=== PATIENT | female | born 1995 | race Hispanic/Latino ===

== ENCOUNTER 2016-10-14 19:46 | Emergency (ER) | payer MEDICAID, OTHER ==
[~2016-10-14] VITALS: Ht 162.6 cm; Wt 59.1 kg
[2016-10-14 19:58] VITALS: BP 114/76; PULSE 67; RESP 16; O2SAT 99
[2016-10-14 20:49] LABS: BASOPHILS % (AUTO) 0.4 % (0-3); EOSINOPHILS % (AUTO) 1.1 % (0-5); MONOCYTES % (AUTO) 7.2 % (4-12); Mean Corpuscular Hemoglobin 31.5 pg (27.0-35.0); Mean Corpuscular Volume 91.8 fL (81-100); NEUTROPHILS % (AUTO) 67.8 % (40-74); Platelet Count 186 bil/L (150-400)
[2016-10-14] MEDS ORDERED: Ondansetron 2 mg/mL 2 mL Inj ONE (21:33)
[2016-10-14] MEDS: Ondansetron 2 mg/mL 2 mL Inj IVPUSH ONE ×2 (21:50→22:22)
[2016-10-14] MEDS ORDERED: 0.9% Sodium Chloride 1,000 ML IV ONE (21:50)
--- NOTE | 2016-10-14 21:51 | ED.REPORT ---
HPI-NVD Date of Service Oct 14, 2016 ED Provider: Jevon Carrera MD Pt is an otherwise healthy 21 year old female who presents to the ED complaining of shaking for the past two days. She c/o associated nausea (onset at 12:00 today), vomiting (onset at 12:00 today, 5x), dizziness, and weakness. The pt denies diaphoresis, rashes, fever, chills, diarrhea, thirst, and leg swelling. She reports that she has not traveled recently and has not been around anyone with similar symptoms recently. Nursing Notes Stated Complaint: PT WORRIED ABOUT BP/NAUSEA/VOMITING Chief Complaint: General Complaint Nursing Notes Reviewed: Yes (Convercent, Já Entendi not reconciled) Allergies: Coded Allergies: No Known Allergies (Unverified Allergy, Unknown, 10/14/16) Scheduled PRN Ondansetron ODT (Ondansetron ODT) 8 Mg Tab.rapdis 8 MG PO Q4H PRN PRN For Nausea General Time Seen by MD: 21:41 Chief Complaint Vomiting Hx Obtained From: Patient Arrived By: Walk-in Onset Occurred: 2 days ago Symptom Duration: Since onset Severity: Current: No pain currently Severity: Maximum: No pain Recent Healthcare: No recent doctor visit, No recent hospitalization Similar Sx Previous: No Past Medical History Past Medical History denies Past Surgical History denies Smoking History Never Smoker Social History Alcohol Use: Denies alcohol use Drug Use: Denies drug use Other Social History: Good social support, Local resident Ambulatory Status Independent Review of Systems Constitutional: Reports: Weakness - generalized, Denies: Chills, Fever GI: Reports: Nausea, Vomiting, Denies: Diarrhea Skin: Denies Rash, Denies Swelling Neurologic: Reports: Dizziness, Shaking Complete sys rev & neg: except as marked. Physical Exam Initial Vital Signs Vital Signs (First) Date Time Temp Pulse Resp B/P Pulse Ox O2 Delivery O2 Flow Rate FiO2 10/14/16 19:58 37.1 67 16 114/76 99 Room Air Initial VS: Reviewed, Vital signs normal Neck: Supple, Non-tender, Full range of motion Respiratory: Breath sounds normal, Clear to auscultation, No respiratory distress Cardiovascular: Regular rate & rhythm, Heart sounds normal, Intact distal pulses Extremities: Vascular intact, Neuro intact Skin: Warm, Dry, No cyanosis Neurologic: Alert, Oriented, Nonfocal Psychiatric: Mood/affect normal, Behavior normal General/Constitutional: Awake, Alert, Cooperative, Not toxic appearing Appears fatigued Abdomen: Atraumatic, Soft, Non-tender ENT: Atraumatic, Airway patent, Pharynx NL Mouth: Positive: Mucous membranes dry Interpretation & Diagnostics Lab Results Interpretation Result Diagram: 10/14/16203910/14/162039 Test 10/14/16 20:40 10/14/16 21:09 White Blood Count 5.7th/mm3 (3.8-10.1) Red Blood Count 4.03mil/mm3 (3.90-5.20) Hemoglobin 12.7g/dL (12.0-15.6) Hematocrit 37.0% (35.0-46.0) Mean Corpuscular Volume 91.8fL (81-100) Mean Corpuscular Hemoglobin 31.5pg (27.0-35.0) Mean Corpuscular Hemoglobin Concent 34.3% (32.0-37.0) Red Cell Distribution Width 12.2% (12.3-15.4) Platelet Count 186bil/L (150-400) Neutrophils (%) (Auto) 67.8% (40-74) Lymphocytes (%) (Auto) 23.3% (14-46) Monocytes (%) (Auto) 7.2% (4-12) Eosinophils (%) (Auto) 1.1% (0-5) Basophils (%) (Auto) 0.4% (0-3) Sodium Level 138mEq/L (134-144) Potassium Level 3.5mEq/L (3.5-5.2) Chloride Level 104mEq/L (97-108) Carbon Dioxide Level 20mmol/L (18-29) Blood Urea Nitrogen 16mg/dL (6-20) Creatinine 0.59mg/dL (0.57-1.00) Estimat Glomerular Filtration Rate 186mL/min (>59) Glucose Level 132mg/dL (60-99) Calcium Level 9.3mg/dL (8.5-10.1) Total Bilirubin 0.8mg/dL (0.0-1.2) Aspartate Amino Transf (AST/SGOT) 20U/L (0-50) Alanine Aminotransferase (ALT/SGPT) 16U/L (0-32) Alkaline Phosphatase 74U/L (25-150) Total Protein 7.4g/dL (6.4-8.4) Albumin 4.5g/dL (3.4-5.0) Hold Hayes Top Tube Received (Received) Urine Color Dark yellow (YELLOW) Urine Appearance Clear (CLEAR,HAZY) Urine pH 5.0 (5.0-8.0) Urine Specific [place] 1.030 (1.003-1.035) Urine Protein Negativemg/dL (NEG,TRACE) Urine Glucose (UA) Negativemg/dL (NEGATIVE) Urine Ketones Negativemg/dL (NEGATIVE) Urine Occult Blood Negative (NEGATIVE) Urine Nitrite Negative (NEGATIVE) Urine Bilirubin Negative (NEGATIVE) Urine Urobilinogen 1.0mg/dL (NORMAL) Urine Leukocyte Esterase Negative (NEGATIVE) Urine RBC 0-2/hpf (0-2) Urine WBC 0-5/hpf (0-5) Urine Epithelial Cells Moderate/hpf (NONE-MOD) Urine Crystals None seen (NONE SEEN) Urine Bacteria Few/hpf (NONE-FEW) Urine Hyaline Casts None/lpf (NONE) Urine Granular Casts None seen (NONE SEEN) Urine Waxy Casts None seen (NONE SEEN) Urine Red Blood Cell Casts None seen (NONE SEEN) Urine White Blood Cell Casts None seen (NONE SEEN) Urine Mucus Present (None Seen) Urine Trichomonas None seen (NONE SEEN) Urine Yeast None (NONE SEEN) Urinalysis Comment None Urine Culture Reflexed Not indicated Hold Urine Received (Received) Lab Results Interpretation: CBC normal CMP normal negative Re-Eval/Medical Decision Med Decision/Clinical Course This is appears healthy 21-year-old female who reports she has been helping, shaky for the past couple days and developed nausea and vomiting multiple times today. She has no contacts, no travel history, no past medical history. He is afebrile, nontoxic-but dehydrated fatigued on initial evaluation. Her abdomen is soft, and entirely nontender without signs of an acute surgical abdomen. Lab work was normal. was negative. Patient received IV fluids and antiemetics and is much improved on reexamination. She is able take by mouth fluids and completed an oral challenge. At this point I am not identifying a dangerous etiology, viral etiology is most likely. The patient is being discharged with some antiemetics, and routine and return precautions. Source of Hx: Old records Re-Evaluation/Progress : Time of Eval: 22:40 Re-Evaluation/Progress Note: Pt rechecked. She reports that she just vomited. Informed pt of plan for discharge. Pt understands and agrees with plan for discharge. F/U instructions and RTER warnings given. All questions addressed. Differential Diagnosis: Positive: Dehydration, Negative: Appendicitis, Boerhaave syndrome, C. diff colitis, Diabetes mellitus, Drug-med reaction, Inflam bowel disease, Meniere's disease, Pancreatitis, Peptic ulcer disease, , Ulcerative colitis Counseled Regarding: Diagnosis, Lab results, Need for follow-up, When/why to return to ED Discharge & Departure Impression: Primary Impression: Vomiting Vomiting type: unspecified Vomiting Intractability: unspecified Nausea presence: unspecified Qualified Code: R11.10 - Vomiting, unspecified Disposition: Home Discharge Condition All VS Reviewed: Yes Condition: Stable Additional Instructions: 1. Your blood tests were normal. 2. The most common cause of these symptoms is a viral infection. 3. Symptoms are expected to improve with time. 4. Rest 5. Drink small, frequent sips of fluids and slowly advance diet as tolerated. 6. IF needed take ondansetron 8mg (let dissolve under tongue) up to every 4 hours as needed. 7. Return to the ED if new, worsening, or uncontrolled symptoms occur. Referrals: Ciera Keller MD (PCP) Astrid Attestation Portions of this note were transcribed by Isabel Muñoz. I, Dr. Carrera personally performed the history, physical exam and medical decision-making; I reviewed and confirmed the accuracy of the information in the transcribed note. Signed by: Astrid Hart, 10/14/16 and 22:30. copies to: Ciera Keller MD, Matthew F MD Oct 14, 2016 21:51 Isabel Sage Oct 14, 2016 22:01
[2016-10-14 22:13] LABS: APPEARANCE,URINE CLEAR (CLEAR,HAZY); COLOR,URINE DARK YELLOW (YELLOW); OCCULT BLOOD,URINE NEGATIVE (NEGATIVE)
[2016-10-14 22:20] VITALS: BP 109/52; PULSE 68; O2SAT 100
[2016-10-14] MEDS ORDERED: Promethazine Inj 12.5 MG in 0.9% Sodium Chloride-Pha MIX 100 ML IV ONE (22:45)
[2016-10-14] MEDS ORDERED: _Ondansetron ODT 4 mg Tablet PO PRN (22:50)
[2016-10-14] MEDS ORDERED: Promethazine Inj 12.5 MG in 0.9% Sodium Chloride 50 ML IV ONE (23:10)
[2016-10-14] MEDS ORDERED: ONDA8TAB10 PO (23:35)
[2016-10-14 23:58] VITALS: BP 101/49; PULSE 58; O2SAT 99
== END 2016-10-15 00:08 | disposition home or self-care (01) ==
LOC: SED 19:46
DX: R11.2 Nausea with vomiting, unspecified (principal); R25.9 Unspecified abnormal involuntary movements; R42 Dizziness and giddiness; R53.1 Weakness
CPT/HCPCS: 36415; 80053; 81000; 81025; 85025; 96361; 96374; 96375; 96376; 99284; J1200; J2405; J2550; J7030